=== PATIENT | male | born 1980 | race Caucasian/White ===

== ENCOUNTER 2017-09-07 11:48 | Emergency (ER) | payer MEDICARE ==
[2017-09-07] MEDS ORDERED: Albuterol Sulfate 2.5 mg/0.5 ml Neb ONE ×2 (12:07→12:11)
[2017-09-07] MEDS ORDERED: Albuterol Sulfate 2.5 mg/3 ml Neb ONE (12:13)
[2017-09-07 12:57] LABS: #Eosinphils 0.1 thou/uL (0.0-0.7); #Lymphocytes 1.5 thou/uL (1.20-3.40); #Monocytes 0.3 thou/uL (0.11-0.59); #Neutrophils 3.9 thou/uL (1.40-6.50); %Basophils 0.5 % (0.0-1.0); %Eosinophils 1.1 % (0.0-10.0); %Lymphocytes 25.4 % (21.0-51.0); %Monocytes 5.3 % (0.0-10.0); %Neutrophils 67.7 % (42.0-75.0); Hemoglobin 16.7 g/dL (14.0-18.0); Mean Corpuscular HGB CONC 34.9 g/dL (32.0-36.0); Mean Corpuscular Hemoglobin 30.1 pg (27.0-31.0); Mean Corpuscular Volume 86.2 fl (80.0-94.0); Mean Platelet Volume 11.6 fL (7.4-10.4); Platelet Count 179 thou/uL (130-400); Red Blood Cell (RBC) Count 5.53 mill/uL (4.70-6.10); White Blood Cell (WBC) Count 5.8 thou/uL (4.8-10.8)
[2017-09-07 13:03] LABS: Anion Gap 19 mmol/L (10-20); BUN (Urea Nitrogen) 10 mg/dL (8.9-20.6); Calc. Creatinine Clearance 0 mL/min (70-130); Calcium 9.8 mg/dL (7.8-10.44); Carbon Dioxide 21 mmol/L (22-29); Chloride 104 mmol/L (98-107); Estimated GFR-MDRD 90; Glucose 96 mg/dL (70-105); Potassium 3.7 mmol/L (3.5-5.1); Sodium 140 mmol/L (136-145)
== END 2017-09-07 13:10 | disposition home or self-care (01) ==
LOC: SCSER 11:48
DX: J20.9 Acute bronchitis, unspecified (principal); B20 Human immunodeficiency virus [HIV] disease; K50.90 Crohn's disease, unspecified, without complications; F17.210 Nicotine dependence, cigarettes, uncomplicated; Z79.899 Other long term (current) drug therapy
CPT/HCPCS: 36415; 80048; 85025; 87040; J7611